=== PATIENT | female | born 1985 | race Caucasian/White ===

== ENCOUNTER 2016-09-22 04:56 | Inpatient (IN) | payer BC ==
--- OUTSIDE RECORDS SUMMARY | 2016-09-22 05:01 | XMS REPORT | Continuity of Care Document ---
:1985 Author Organization [facility] ([facility]) Address [address] [place] [address] Phone [phone] Care Team Providers Name Role Phone Debora Esparza Primary Care Provider [phone] Source Comments This disclosure is being made pursuant to the Care Everywhere program, applicable federal and state laws, and may not contain all informaitonavailable regarding this patient.[facility] ([facility]) Active Allergies and Adverse Reactions Allergen Noted Date Severity Reactions Comments Levonorgestrel-Ethinyl 03/30/2016 Low OTHER Itchy eyes and watery nose. Estrad Peanut 03/30/2016 Medium OTHER welts Soy 03/30/2016 Medium OTHER welts Current Medications Prescription Sig. Disp. Refills Start Date End Date Status cholestyramine 4 gram oral Take 4 g by mouth Active powder daily. multivitamin with Take by mouth Active minerals PO daily. Active Problems Problem Noted Date 03/30/2016 Celiac disease 03/30/2016 Currently Estimated Date of Delivery Comments Yes Immunizations Name Dates Previously Given Next Due DTaP 11/25/2013 Influenza 07/08/2013,12/12/2012,12/13/2011 Pneumococcal Polysaccharide, PPSV23 12/13/2011 (Pneumovax 23) Tdap 12/13/2011 Social History Tobacco Use Types Packs/Day Years Used Date Never Smoker Smokeless Tobacco: Never Used Last Filed Vital Signs Vital Sign Reading Time Taken Blood Pressure 122/76 03/30/2016 1:26 PM CDT Pulse 93 03/30/2016 1:26 PM CDT Temperature 37.1 C (98.8 F) 03/30/2016 1:26 PM CDT Respiratory Rate 20 03/30/2016 1:26 PM CDT Height 1.702 m (5' 7.01") 03/30/2016 1:26 PM CDT Weight 62.4 kg (137 lb 9.1 oz) 03/30/2016 1:26 PM CDT Body Mass Index 21.54 03/30/2016 1:26 PM CDT Oxygen Saturation - - Plan of Care Date Type Specialty Providers Description 04/05/2017 Appointment Med GI/Hepatology Pacheco Reese MD [address] [place] [address] [phone] (Fax) Chief Comp: Patient Attila, Jolie Luo PA-C [address] [place] [address] [phone] (Fax) Reported Reason For Visit Health Maintenance Due Date Last Done Comments Hepatitis B Vaccine (1 of 3 - 1985 Primary Series) Cervical Cancer Screening 2004 Lipid Disorder Screening 2004 MMR Vaccine 2004 Varicella Vaccine (1 of 2 - Adult - 2004 No Evidence of Immunity) Influenza Vaccine: Seasonal (#1) 01/04/2016 07/08/2013, 12/12/2012, 12/13/2011 Td Vaccine 11/26/2023 11/25/2013, 12/13/2011 Tdap Vaccine Completed 12/13/2011 Results from Last 3 Months Not on file
[2016-09-22] MEDS ORDERED: OXYTOCIN 20 UNITS in RINGERS SOLUTION,LACTATED 1,000 ML IV ONE (05:31)
[2016-09-22] MEDS: RINGERS SOLUTION,LACTATED 1,000 ML IV PRN ×2 (05:44→06:15)
[2016-09-22] MEDS ORDERED: ceFAZolin SODIUM/DEXTROSE,ISO 2 GM/50 ML BAG IV ONE (05:45)
[2016-09-22] MEDS ORDERED: RINGERS SOLUTION,LACTATED 1,000 ML IV ONE ×2 (07:30→08:51)
[2016-09-22] MEDS ORDERED: SIMETHICONE 80 MG TAB.CHEW PO PRN (09:06)
[2016-09-22] MEDS ORDERED: BISACODYL 10 MG SUPP.RECT RC PRN (09:06)
[2016-09-22] MEDS ORDERED: ONDANSETRON HCL/PF 2 MG/ML VIAL IV PRN (09:06)
[2016-09-22] MEDS ORDERED: SENNOSIDES 8.6 MG TABLET PO PRN (09:06)
[2016-09-22] MEDS ORDERED: oxyCODONE HCL/ACETAMINOPHEN 1 TAB TABLET PO PRN (09:06)
--- NOTE | 2016-09-22 09:11 | OR ---
Operative Report - Dictated Report Narrative: Indication: 31-year-old 2 para 1 with prior section desires repeat and sterilization by tubal ligation Pre Operative Diagnosis: 39 week intrauterine , prior section , desires sterilization Post Operative Diagnosis: Same. Procedure: Repeat low transverse section. Abdominal scar revision - 16cm. Bilateral tubal fulguration Surgeon: Stephen Stephens DO Scheduler Conveyor: none Anesthesia: Spinal with duramorph, TAP block Estimated Blood Loss: 250 mL Urine Output: 100 mL clear urine Fluids Replacement: 1800 mL Drains: Gordon to gravity Surgical Complications: None Specimens: Placenta to freezer Findings: Female in cephalic presentation born at 0800 on 09/22/2015 with Apgars 9 and 9, weighing 4011 g. Normal uterus, tubes, ovaries Technique: The patient was taken to the operating room and placed in dorsal supine position with a left lateral tilt. After adequate spinal anesthesia, gordon catheter inserted, SCDs placed, and 2 g of Ancef given preoperatively, the previous scar was excised in an elliptical fashion and the abdominal cavity was entered using sharp and blunt dissection. Two rolled laps were placed in the pericolic gutters on either side of the uterus. A transverse incision was made in the lower uterine segment and extended laterally and upwardly with digital traction. Clear fluid was noted upon amniotomy. The was delivered easily. The cord was clamped and cut and infant was handed off to awaiting peditrician. The placenta was allowed to deliver spontaneously. The uterus was cleared of clot and debris. Uterine incision was closed with 0 Vicryl using a running stitch. A second imbricating layer was placed. Excellent hemostasis was noted. The right fallopian tube was identified. followed out to the fimbriated end and a 2 cm segment of the tube was coagulated approximately 2 cm from the cornual region. An audible meter was attached to the Kleppinger's to assure through and through burn. The exact same was done on the patient's left side. The rolled laps were removed from the abdominal cavitiy. The peritoneum was closed with a running 3-0 Monocryl. The same suture was used to approximate the rectus and pyramidalis muscles. The fascia was closed with a running 0 Vicryl. The subcutaneous layer was closed with a running 3-0 Monocryl. The same suture was used to approximate the subdermal layer. The skin was closed with a running 4-0 Monocryl. Dermabond adhesive dressing was applied. Sponge, lap, needle, and instrument count were correct x 2. Disposition: To post anesthesia care unit in good condition
[2016-09-22] MEDS ORDERED: NALOXONE HCL 1 MG/1 ML SYRG IV PRN ×2 (09:13)
[2016-09-22] MEDS ORDERED: diphenhydrAMINE HCL 50 MG/ML VIAL IV PRN (09:13)
[2016-09-22] MEDS ORDERED: KETOROLAC TROMETHAMINE 15 MG/ML VIAL IV PRN (09:13)
[2016-09-22] MEDS: oxyCODONE HCL/ACETAMINOPHEN 1 TAB TABLET PO PRN ×4 (11:26→23:49)
[2016-09-22] MEDS: DOCUSATE SODIUM 100 MG CAPSULE PO SCH (20:40)
[2016-09-22] MEDS: IBUPROFEN 800 MG TABLET PO PRN (23:49)
[2016-09-23] MEDS: oxyCODONE HCL/ACETAMINOPHEN 1 TAB TABLET PO PRN ×5 (04:45→23:44)
[2016-09-23] MEDS: PRENATAL VIT#96/FERROUS FUM/FA 1 TAB TABLET PO SCH (09:15)
[2016-09-23] MEDS: IBUPROFEN 800 MG TABLET PO PRN ×3 (09:15→23:44)
[2016-09-23] MEDS: DOCUSATE SODIUM 100 MG CAPSULE PO SCH ×2 (09:15→21:38)
--- NOTE | 2016-09-23 17:35 | PN ---
Subjective - Date and Time Seen Date: 09/23/16 Subjective Narrative: Post op day 1, s/p repeat c/s with BTL doing well without complaints. . normal lochia. pain controlled. Objective - Vitals Vitals: Last Vital Signs Temp 36.6 C 09/23/16 13:00 Pulse 73 09/23/16 13:00 Resp 18 09/23/16 13:00 BP 108/78 09/23/16 13:00 Pulse Ox 98 09/23/16 13:00 - Exam Constitutional: Present: Oriented x3, Cooperative Respiratory: Present: no respiratory distress Cardiovascular/Chest: Present: normal peripheral pulses Abdomen: Present: soft, nondistended, other - fundus firm. Incision dry and clean Extremity: Present: normal range of motion, no pedal edema, no calf tenderness Eye contact: Present: cooperative, good eye contact, normal speech Cauti Physician Documentation - Urinary Catheter Management Urethral (Key) Date of Insertion: 09/22/16 Time of Insertion: 07:45 Date of Removal: 09/22/16 Time of Removal: 20:30 Assessment/Plan Plan Narrative: A: POD#1, s/p repeat c/s with BTL, stable. Plan: routine post op care. ambulation encouraged. Case Malik MD
--- NOTE | 2016-09-23 17:44 | PN ---
Subjective - Date and Time Seen Date: 09/23/16 Time: 17:41 Subjective Narrative: The patient denies complications related to Duramorph spinal and bilateral ultrasound-guided tap blocks. Patient states her pain is well controlled. Objective - Review of Systems Generalized/Overall Review: Reports: No Symptoms Reported - Vitals Vitals: Last Vital Signs Temp 36.6 C 09/23/16 13:00 Pulse 73 09/23/16 13:00 Resp 18 09/23/16 13:00 BP 108/78 09/23/16 13:00 Pulse Ox 98 09/23/16 13:00 - Exam Constitutional: Present: Alert, Oriented x3, Cooperative, No distress Extremity: Present: normal range of motion Skin Exam: Present: normal color Cauti Physician Documentation - Urinary Catheter Management Urethral (Key) Date of Insertion: 09/22/16 Time of Insertion: 07:45 Date of Removal: 09/22/16 Time of Removal: 20:30 Assessment/Plan Plan Narrative: Continue current pain medications as prescribed.
[2016-09-24] MEDS: oxyCODONE HCL/ACETAMINOPHEN 1 TAB TABLET PO PRN ×3 (05:10→20:46)
[2016-09-24] MEDS: IBUPROFEN 800 MG TABLET PO PRN ×3 (05:45→19:08)
[2016-09-24] MEDS: PRENATAL VIT#96/FERROUS FUM/FA 1 TAB TABLET PO SCH (08:03)
[2016-09-24] MEDS: DOCUSATE SODIUM 100 MG CAPSULE PO SCH ×2 (08:03→20:46)
--- NOTE | 2016-09-24 19:33 | PN ---
Subjective - Date and Time Seen Date: 09/24/16 Time: 19:31 Objective - Vitals Vitals: Last Vital Signs Temp 36.7 C 09/24/16 08:00 Pulse 85 09/24/16 08:00 Resp 18 09/24/16 08:00 BP 122/82 09/24/16 08:00 Pulse Ox 98 09/24/16 08:00 Patient denies complaints. Ambulating well. Tolerating regular diet. Pain well controlled. Lochia wnl. Abdomen - soft, appropriately tender Incision - clean, dry, intact Uterus - firm, at umbilicus -2 No calf tenderness Impression: Post op day #2 s/p repeat section. Bilateral tubal ligation Plan: Continue routine post-operative/ care Cauti Physician Documentation - Urinary Catheter Management Urethral (Key) Date of Insertion: 09/22/16 Time of Insertion: 07:45 Date of Removal: 09/22/16 Time of Removal: 20:30
[2016-09-25] MEDS: PRENATAL VIT#96/FERROUS FUM/FA 1 TAB TABLET PO SCH ×2 (07:29→10:48)
[2016-09-25] MEDS: DOCUSATE SODIUM 100 MG CAPSULE PO SCH ×2 (07:29→10:48)
[2016-09-25] MEDS: IBUPROFEN 800 MG TABLET PO PRN (07:29)
--- NOTE | 2016-09-25 08:39 | PN ---
Subjective - Date and Time Seen Date: 09/25/16 Time: 08:38 Objective - Vitals Vitals: Last Vital Signs Temp 36.8 C 09/25/16 03:53 Pulse 72 09/25/16 03:53 Resp 16 09/25/16 03:53 BP 105/77 09/25/16 03:53 Pulse Ox 98 09/25/16 03:53 Patient denies complaints. Ambulating without difficulty. Tolerating regular diet. Pain well controlled. Lochia wnl. Abdomen - soft, appropriately tender Incision - clean, dry, intact Uterus - firm, at umbilicus -3 No calf tenderness Impression: Post op day #3 s/p repeat section. Bilateral tubal ligation Plan: Routine discharge instructions Cauti Physician Documentation - Urinary Catheter Management Urethral (Key) Date of Insertion: 09/22/16 Time of Insertion: 07:45 Date of Removal: 09/22/16 Time of Removal: 20:30
[2016-09-25 10:54] VITALS: BP 128/80
== END 2016-09-25 11:55 | disposition home or self-care (01) | DRG 766 ==
LOC: MS 04:56
PROVIDERS: ADMIT Obstetrics & Gynecology; ATTEND Obstetrics & Gynecology
PROC: 0U570ZZ Destruction of Bilateral Fallopian Tubes, Open Approach (ICD-10-PCS; 2016-09-22)
PROC: 4A1HXCZ Monitoring of Products of Conception, Cardiac Rate, External Approach (ICD-10-PCS; 2016-09-22)
PROC: 10D00Z1 Extraction of Products of Conception, Low, Open Approach (ICD-10-PCS; principal; 2016-09-22 08:00)
DX: O99.824 Streptococcus B carrier state complicating childbirth (principal); O99.02 Anemia complicating childbirth; D64.9 Anemia, unspecified; O34.211 Maternal care for low transverse scar from previous cesarean delivery; K90.0 Celiac disease; Z3A.39 39 weeks gestation of pregnancy; Z37.0 Single live birth